=== PATIENT | male | born 1995 | race Two or more races ===

== ENCOUNTER 2019-01-24 11:56 | Emergency (ER) | payer MEDICAID ==
[~2019-01-24] VITALS: Ht 185.4 cm; Wt 101.6 kg
[2019-01-24 11:58] VITALS: BP 166/87
[2019-01-24] MEDS ORDERED: TDAP [DIPH/PERTUSSIS/TET] 0.5 ML VIAL IM ONE ×2 (12:08→12:30)
[2019-01-24] MEDS ORDERED: LIDOCAINE HCL/PF 1% 30 ML SDV ONE (12:25)
[2019-01-24] MEDS ORDERED: LIDOCAINE /MPF 1% VIAL 5 ML VIAL IJ ONE (12:30)
[2019-01-24] MEDS ORDERED: MORPHINE SULFATE INJ 4 MG/ML DISP.SYRIN ONE (12:43)
[2019-01-24] MEDS ORDERED: ONDANSETRON 4 MG TAB.RAPDIS ONE (12:43)
[2019-01-24] MEDS ORDERED: GELATIN SPONGE,ABSORBABLE 1 SPONGE SPONGE TP ONE ×2 (12:47→13:55)
--- NOTE | 2019-01-24 12:50 | NUR ---
RADIOLOGY AT BEDSIDE FOR L HAND XRAY.
[2019-01-24] MEDS ORDERED: ONDANSETRON 4 MG TAB.RAPDIS SL ONE (13:00)
[2019-01-24] MEDS ORDERED: MORPHINE SULFATE INJ 2 MG/ML DISP.SYRIN IM ONE (13:00)
== END 2019-01-24 14:30 | disposition home or self-care (01) ==
LOC: ER 11:56
DX: S62.631B Displaced fracture of distal phalanx of left index finger, initial encounter for open fracture (principal); S62.633B Displaced fracture of distal phalanx of left middle finger, initial encounter for open fracture; S62.635B Displaced fracture of distal phalanx of left ring finger, initial encounter for open fracture; W31.2XXA Contact with powered woodworking and forming machines, initial encounter; Y93.89 Activity, other specified; Y92.89 Other specified places as the place of occurrence of the external cause; Y99.8 Other external cause status
CPT/HCPCS: 29130 ×3; 73130; 90471; 90715; 96372; 99283; A6402; J2270; J3490; Q0162